=== PATIENT | female | born 1985 | race Hispanic/Latino ===

== ENCOUNTER 2019-10-05 22:47 | Emergency (ER) | payer MEDICAID, OTHER ==
[~2019-10-05 22:47] MED LIST: ACET-66 PO; DOCU-116 PO; IBUP-2077 PO; PREN1TAB80 PO
== END 2019-10-06 00:03 | disposition home or self-care (01) ==
LOC: EDH 22:47
DX: J11.1 Influenza due to unidentified influenza virus with other respiratory manifestations (principal)